=== PATIENT | female | born 1990 | race Two or more races ===

== ENCOUNTER 2024-05-02 14:52 | Emergency (ER) | payer BC, MEDICAID ==
[~2024-05-02] VITALS: Ht 157.5 cm; Wt 64.4 kg
[2024-05-02 15:42] VITALS: BP 101/69; PULSE 61; RESP 16; TEMP 97.6; O2SAT 100
[2024-05-02] MEDS: EPINEPHrine HCL 1 MG/1 ML AMP SC ONE (16:04)
[2024-05-02] MEDS ORDERED: METH4PAK PO (16:25)
[2024-05-02] MEDS ORDERED: HYDR25CA PO (16:25)
== END 2024-05-02 16:29 | disposition home or self-care (01) ==
LOC: ER 14:52
DX: T78.40XA Allergy, unspecified, initial encounter (principal); Z88.8 Allergy status to other drugs, medicaments and biological substances; Z79.52 Long term (current) use of systemic steroids; X58.XXXA Exposure to other specified factors, initial encounter
CPT/HCPCS: 96372; 99283; J0171